=== PATIENT | male | born 1950 | race Caucasian/White ===

== ENCOUNTER 2018-12-23 14:00 | Outpatient (RCR) | payer MEDICARE, MEDICAID, SELFPAY ==
--- NOTE | 2018-11-09 13:28 | HMH.PTOPWND ---
Rehab Outpt Wound Evaluation Rehab OP Wound Evaluation Start: 11/09/18 13:00 Freq: Status: Active Protocol: Document 11/09/18 13:21 MEGAN (Rec: 11/09/18 13:28 PHORNE [id number]) Electronically Signed By Qasim Sal, PT 11/09/18 13:21 Subjective/History History History Pt is a 68 yowm who presents with c/o rinku LE edema for several years, but unsure of exact start of symptoms. He reports minimal c/o pain or numbness in rinku LE and has recently been treated for cellulitis of the right LE. He has limited ankle DF and PF rinku and significantly shuffling gait pattern. He currently resides in a SNF and has PMH of HTN, CAD, CHF, DM- II, HL. Lymphedema Eval Classification of Lymphedema Secondary Lymphedema Yes Stemmer's sign Stemmer's Sign no Stage of Lymphedema Lymphedema stages Stage II (Pitting edema, increased fibrosis w/ decreased pitting) Skin Changes Dry Skin Yes Taut, Shiny Skin Yes Redness Yes Blisters Yes Discoloration of Skin Yes Affected Extremities Areas Affected by Lymphedema/Edema Right Lower Extremity Left Lower Extremity Manual Lymphatic Drainage Treatment Area MLD Treatment Area Right Lower Extremity Left Lower Extremity Wound Problems/Impairments Impairments Problems/Impairmments Palpation Tenderness Impaired Range of Motion Impaired Gait Pattern Increased Edema Lymphedema Present Wound Care Needs Subjective C/O Pain Impaired Self Care/Self Management Prognosis Rehab Potential Fair Clinical Impression Consistent with Diagnosis Yes Short Term Goals Number of Weeks 4 Decreased Palpation Tenderness Yes: to min Decrease Subjective C/O Pain Yes: 2/10 Patient to Understand Lymphedema Yes Treatment and Exercises Decrease Girth Measurments by (cm) Yes: by 5 cm Replanter Goals Number of Weeks 8 Decreased Palpation Tenderness Yes: to none Increase Ability to Walk Yes Decrease Subj
== END 2018-12-23 14:35 | disposition home or self-care (01) ==
LOC: PT 14:00
PROVIDERS: Visit Provider Podiatrist
DX: I89.0 Lymphedema, not elsewhere classified (principal)
CPT/HCPCS: 97140; 97162; 97760